=== PATIENT | male | born 1985 | race Caucasian/White ===

== ENCOUNTER 2021-12-13 11:34 | Emergency (ER) | payer OTHER ==
[2021-12-13] MEDS ORDERED: CYCLOBENZAPRINE10 MG PO (14:26)
== END 2021-12-13 15:00 | disposition home or self-care (01) ==
LOC: ER1 11:34
DX: S29.012A Strain of muscle and tendon of back wall of thorax, initial encounter (principal); S46.912A Strain of unspecified muscle, fascia and tendon at shoulder and upper arm level, left arm, initial encounter; F17.290 Nicotine dependence, other tobacco product, uncomplicated; Z79.899 Other long term (current) drug therapy; V49.9XXA Car occupant (driver) (passenger) injured in unspecified traffic accident, initial encounter
CPT/HCPCS: 70450; 72128; 99284